=== PATIENT | female | born 1970 | race Asian ===

== ENCOUNTER 2024-04-05 08:49 | Outpatient (CLI) | payer BC | END 2024-04-05 08:50 | disposition home or self-care (01) | LOC: CSHULT 08:49 | PROVIDERS: ATTEND Internal Medicine | DX: R93.429 Abnormal radiologic findings on diagnostic imaging of unspecified kidney (principal) | CPT/HCPCS: 76770 ==

== ENCOUNTER 2025-03-05 12:25 | Outpatient (CLI) | payer BC | END 2025-03-05 12:26 | disposition home or self-care (01) | LOC: CSHMAMMO 12:25 | PROVIDERS: ATTEND Internal Medicine | DX: Z12.31 Encounter for screening mammogram for malignant neoplasm of breast (principal) | CPT/HCPCS: 77063; 77067 ==